=== PATIENT | male | born 1945 | race Caucasian/White ===

== ENCOUNTER 2017-03-25 19:04 | Outpatient (CLI) ==
--- NOTE | 2017-03-26 08:06 | DI ---
EXAM: Two views of the right knee HISTORY: Right knee pain. COMPARISON: None FINDINGS: Medial compartment is mildly narrowed. There is minimal osteophyte formation. There is no cortical irregularity or displaced fracture. There is narrowing and subchondral sclerosis and osteo phyte formation. The patellofemoral compartment. The soft tissues are unremarkable. There is a rou nd lucent lesion in the proximal tibia with no fracture, cortical irregularity or definitive expansil e process. IMPRESSION: 1. No acute fracture or subluxation. 2. 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 3. Lytic well-corticated bone lesion in the proximal right tibia measuring 4.5 x 4.1 cm with no joselyn ical disruption or fracture and sharply marginated borders. Findings are most consistent with a sergio gn bone lesion, but if further evaluation is clinically indicated, MRI may be obtained.
== END 2017-03-25 19:05 | disposition home or self-care (01) ==
LOC: RAD 19:04
PROVIDERS: ATTEND Family Medicine
DX: M25.561 Pain in right knee (principal); M19.90 Unspecified osteoarthritis, unspecified site

== ENCOUNTER 2017-03-26 17:42 | Outpatient (CLI) | END 2017-03-26 17:43 | disposition home or self-care (01) | LOC: LAB 17:42 | PROVIDERS: ATTEND Family Medicine | DX: M25.569 Pain in unspecified knee (principal); M19.90 Unspecified osteoarthritis, unspecified site | CPT/HCPCS: 36415; 86200 ==

== ENCOUNTER 2018-03-28 11:14 | Emergency (ER) | payer OTHER ==
[2018-03-28 11:28] VITALS: BP 102/72; TEMP 99.7; BMI 29.8
--- NOTE | 2018-03-28 11:51 | CT ---
Exam: Head CT. Date: 03/28/2018. Comparison: None. HISTORY: Dizziness. TECHNIQUE: Helical scan of the brain was performed. FINDINGS: The calvarium is intact. There are polyps in the left maxillary sinus. The remaining par anasal sinuses and mastoid air cells are clear. There is mild cerebral and cerebellar volume loss with mild decreased attenuation in the periventricu lar white matter. No abnormal intra or extra-axial fluid, mass or mass effect is present. There is no midline shift or hydrocephalus. No large vessel infarct or hemorrhages identified. Rodriguez-white in terface is maintained. Impression: No acute intracranial findings. Senescent changes with chronic microvascular disease. Left maxillary sinus polyposis.
--- NOTE | 2018-03-28 12:28 | ED.PDOC ---
General ED Provider: Dr. KENNA JOYNER-ER Chief Complaint: Dizziness Stated Complaint: while at [employer] i got dizzy and nauseatd Time Seen by Physician: 11:20 Mode of Arrival: Walk-In Information Source: Patient, Family Exam Limitations: No limitations Primary Care Provider: PAUL GARCIA Nursing and Triage Documentation Reviewed and Agree: Yes Does patient meet sepsis criteria?: No System Inflammatory Response Syndrome: Not Applicable Sepsis Protocol: For patient's 13 years and over: Temp is 96.8 and below OR 101 and greater Pulse >90 BPM Resp >20/minute Acutely Altered Mental Status Are patient's symptoms suggestive of a new infection, such as: -Pneumonia -Skin, Soft Tissue -Endocarditis -UTI -Bone, Joint Infection -Implantable Device -Acute Abdominal Infection -Wound Infection -Meningitis -Blood Stream Catheter Infection -Unknown Neurological Complaint Exam - Syncope/Near Syncope Complaint/Exam Onset/Duration: a few secs Symptoms Are: Resolved Episodes Lasting: Seconds Number of Episodes: 1 Frequency of Episodes: 1 Episodes Witnessed: Yes Loss of Consciousness: No Associated Head Trauma: No Activity at Onset: At rest Aggravating: None Alleviating: Reports: None Associated Signs and Symptoms: Reports: Lightheadedness, Dizziness GI Bleed Risk Factors: Reports: None Dysrhythmia Risk Factors: Reports: >45 years old JVD Present: No Carotid Bruit Present: No Glascow Coma Scale (see protocol): 15 Nystagmus Present: No Gag Reflex Present: Yes Meningeal Signs Positive: No Focal Weakness: Present: None Focal Sensory Loss: Present: None Gait: Normal Romberg Test Positive: No Babinski Sign: Negative Right, Negative Left Heel to Toe Normal: Yes Differential Diagnoses: Dysrhythmia Quality Indicator For Non-Traumatic Chest Pain/Syncope: EKG Performed Review of Systems - Review Of Systems Constitutional: Reports: No symptoms Eyes: Reports: No symptoms Ears, Nose, Mouth, Throat: Reports: No symptoms Respiratory: Reports: No symptoms Cardiac: Reports: No symptoms GI: Reports: No symptoms : Reports: No symptoms Musculoskeletal: Reports: No symptoms Skin: Reports: No symptoms Neurological: Reports: Weakness Endocrine: Reports: No symptoms Hematologic/Lymphatic: Reports: No symptoms All Other Systems: Reviewed and Negative Past Medical History - Past Medical History Previously Healthy: Yes Endocrine: Reports: Unknown Cardiovascular: Reports: Unknown Respiratory: Reports: Unknown Hematological: Reports: Unknown Gastrointestinal: Reports: Unknown Genitourinary: Reports: Unknown Neuro/Psych: Reports: Unknown Musculoskeletal: Reports: Unknown Cancer: Reports: Unknown - Surgical History General Surgical History: Reports: Unknown - Family History Family History: Reports: Unknown - Social History Smoking Status: Never smoker Hx Substance Use: No Alcohol Screening: None - Immunizations Tetanus Shot up to Date: No Physical Exam - Physical Exam Appearance: Well-appearing, No pain distress, Well-nourished Eyes: VALERY, EOMI, Conjunctiva clear ENT: Ears normal, Nose normal, Oropharynx normal Neck: Supple Respiratory: Airway patent Cardiovascular: RRR, Pulses normal, No rub, No murmur GI/: Soft, Nontender, No masses, Bowel sounds normal, No Organomegaly Musculoskeletal: Normal strength, ROM intact, No edema, No calf tenderness Skin: Warm, Dry, Normal color Neurological: Sensation intact, Motor intact, Reflexes intact, Cranial nerves intact, Alert, Oriented Psychiatric: Affect appropriate, Mood appropriate Interpretation - Radiology Interpretation Radiology Interpretation By: Radiologist Radiology Results: Negative Exam Interpreted: CT Scan - EKG Interpretation Time of EKG #1: 12:29 Rate: Normal Rhythm: Sinus Ectopy: None [place]: NL ST Segment: Normal Interpretation: nsr Re-Evaluation - Re-Evaluation Time of Re-Evaluation: 12:29 Status: Improved Vital Signs Stable: Yes Pain Level: 0 Appearance: NAD Lungs: Clear Skin: Warm and Dry Neuro: Alert and Oriented X3 CV: RRR Additional Comments: no chest pain or newman Critical Care Note - Critical Care Note Total Time (mins): 0 Course - Course Hematology/Chemistry: 03/28/18 11:45 03/28/18 11:45 Orders, Labs, Meds: Lab Review 03/28/18 03/28/18 11:45 11:45 WBC 7.73 RBC 4.43 L Hgb 14.2 Hct 41.6 L MCV 93.9 MCH 32.1 H MCHC 34.1 RDW Coeff of Darryn 13.6 Plt Count 144 Immature Gran % (Auto) 0.3 Neut % (Auto) 76.4 Lymph % (Auto) 11.3 [place] % (Auto) 8.4 Eos % (Auto) 3.0 Baso % (Auto) 0.6 Immature Gran # (Auto) 0.0 Neut # (Auto) 5.9 Lymph # (Auto) 0.9 [place] # (Auto) 0.7 Eos # (Auto) 0.2 Baso # (Auto) 0.1 Sodium 135.7 L Potassium 4.62 Chloride 104.7 Carbon Dioxide 24.2 Anion Gap 11.42 BUN 42.6 H Creatinine 2.03 H Estimated GFR (MDRD) 33.00 BUN/Creatinine Ratio 20.98 Glucose 122.2 H Calcium 9.58 Total Bilirubin 0.67 AST 33.2 ALT 21.0 Alkaline Phosphatase 125.5 H Total Creatine Kinase 137.3 CK-MB (CK-2) 1.510 CK-MB (CK-2) % 1.0900 Troponin I < 0.012 Total Protein 7.57 Albumin 3.89 Globulin 3.68 Albumin/Globulin Ratio 1.05 Orders Category Date Time Status EKG-(ED ONLY) Stat CARDIO 03/28/18 11:26 Completed Research Manager [ED SUSTAINABILITY DIRECTOR APPLIED] .ONCE EMERGENCY 03/28/18 11:26 Active CBC W/ AUTO DIFF Stat LAB 03/28/18 11:45 Completed COMPREHENSIVE METABOLIC PANEL Stat LAB 03/28/18 11:45 Completed CREATINE KINASE Stat LAB 03/28/18 11:45 Completed TROPONIN I Stat LAB 03/28/18 11:[address] HEAD W/O CONTRAST Stat RADS 03/28/18 11:26 Completed Vital Signs: Temp Pulse Resp BP Pulse Ox 03/28/18 11:15 99.7 F H 74 18 102/72 95 Departure - Departure Time of Disposition: 12:29 Disposition: HOME SELF-CARE Discharge Problem: Near syncope, CHERELLE (acute kidney injury) Instructions: Near Syncope (ED) Condition: Good Pt referred to PMD for follow-up: Yes IPMP verified?: No Additional Instructions: rest today---plenty of fluids---8 glasses of water today--repeat bmp tomorrow at dr avilez office ---schedule stress test and holter monitor through the office tomorrow Allergies/Adverse Reactions: Allergies atorvastatin [From Lipitor] Adverse Reaction (Verified 03/28/18 11:28) ciprofloxacin [From Cipro] Adverse Reaction (Verified 03/28/18 11:28) Penicillins Adverse Reaction (Verified 03/28/18 11:28) Home Medications: Ambulatory Orders Allopurinol 300 mg PO DAILY 03/28/18 Colchicine 0.6 mg PO PRN PRN 03/28/18 Finasteride [Proscar] 5 mg PO DAILY 03/28/18 Fluticasone/Salmeterol 250/50 [Advair 250-50 Diskus] 1 puff IH BID 03/28/18 Irbesartan/Hydrochlorothiazide [Irbesartan-Hctz 300-12.5 mg Tb] 1 each PO DAILY 03/28/18 Meloxicam 15 mg PO DAILY 03/28/18 Pantoprazole Sodium [Protonix] 40 mg PO DAILY 03/28/18 Rosuvastatin Calcium [Crestor] 10 mg PO DAILY 03/28/18 Transfer Form Completed: No Disposition Discussed With: Patient, Family
== END 2018-03-28 12:40 | disposition home or self-care (01) ==
LOC: ED 11:14 → MERGE 11:14 → ED 12:40
DX: R55 Syncope and collapse (principal); N17.9 Acute kidney failure, unspecified; Z79.899 Other long term (current) drug therapy
CPT/HCPCS: 36415; 80053; 82550; 82553; 84484; 85025; 93005; 93010; 99283

== ENCOUNTER 2018-04-09 14:31 | Emergency (ER) ==
[2018-04-09 14:35] VITALS: BP 137/78; TEMP 98.8; BMI 30.6
--- NOTE | 2018-04-09 15:21 | ED.PDOC ---
General ED Provider: Dr. AUGUSTA PEARSON Chief Complaint: Earache Stated Complaint: LEFT EAR PAIN X 3 DAYS NO D/C Time Seen by Physician: 15:00 (SEEN WITH STEPHANIE AT ALL TIMES ) Mode of Arrival: Walk-In Information Source: Patient Exam Limitations: No limitations Primary Care Provider: PAUL GARCIA Nursing and Triage Documentation Reviewed and Agree: Yes Does patient meet sepsis criteria?: Yes If yes, has appropriate treatment been initiated?: No System Inflammatory Response Syndrome: Not Applicable Sepsis Protocol: For patient's 13 years and over: Temp is 96.8 and below OR 101 and greater Pulse >90 BPM Resp >20/minute Acutely Altered Mental Status Are patient's symptoms suggestive of a new infection, such as: -Pneumonia -Skin, Soft Tissue -Endocarditis -UTI -Bone, Joint Infection -Implantable Device -Acute Abdominal Infection -Wound Infection -Meningitis -Blood Stream Catheter Infection -Unknown EENT Complaint Exam - Ear Complaint/Exam Onset/Duration: 2 DAYS Symptoms Are: Still present Timing: Constant Initial Severity: Moderate Current Severity: Moderate Character: Reports: Dull pain Aggravating: Reports: None Alleviating: Reports: None Associated Signs and Symptoms: Denies: Ear trauma, Ear swelling, Discharge, Fever, Hearing loss, Bleeding, Sore throat, Headache, URI symptoms, Foreign body sensation, Rash, Pain to external ear, Pain to external face Ear 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) Vesicles to External Pinna: No Vesicles to Tragus: No TMJ Tenderness: None Mastoid Tenderness: None Tragal Tenderness: None External Canal: Normal Tympanic Membrane: Erythema Differential Diagnoses: Otitis Media Review of Systems - Review Of Systems Constitutional: Reports: No symptoms Eyes: Reports: No symptoms Ears, Nose, Mouth, Throat: Reports: Ear pain (LEFT) Respiratory: Reports: No symptoms Cardiac: Reports: No symptoms GI: Reports: No symptoms : Reports: No symptoms Musculoskeletal: Reports: No symptoms Skin: Reports: No symptoms Neurological: Reports: No symptoms Endocrine: Reports: No symptoms Hematologic/Lymphatic: Reports: No symptoms All Other Systems: Reviewed and Negative Past Medical History - Past Medical History Previously Healthy: Yes Endocrine: Reports: Unknown Cardiovascular: Reports: Unknown Respiratory: Reports: Unknown Hematological: Reports: Unknown Gastrointestinal: Reports: Unknown Genitourinary: Reports: Unknown Neuro/Psych: Reports: Unknown Musculoskeletal: Reports: Unknown Cancer: Reports: Unknown - Surgical History General Surgical History: Reports: Unknown - Family History Family History: Reports: Unknown - Social History Smoking Status: Never smoker Hx Substance Use: No Alcohol Screening: None - Immunizations Tetanus Shot up to Date: No Physical Exam - Physical Exam Appearance: Well-appearing, No pain distress, Well-nourished Eyes: VALERY, EOMI, Conjunctiva clear ENT: Erythema (LEFT TM NO F/B ) Respiratory: Airway patent, Breath sounds clear, Breath sounds equal, Respirations nonlabored Cardiovascular: RRR, Pulses normal, No rub, No murmur GI/: Soft, Nontender, No masses, Bowel sounds normal, No Organomegaly Musculoskeletal: Normal strength, ROM intact, No edema, No calf tenderness Skin: Warm, Dry, Normal color Neurological: Sensation intact, Motor intact, Reflexes intact, Cranial nerves intact, Alert, Oriented Psychiatric: Affect appropriate, Mood appropriate Critical Care Note - Critical Care Note Total Time (mins): 0 Course - Course Vital Signs: Temp Pulse Resp BP Pulse Ox 04/09/18 14:31 98.8 F 87 16 137/78 97 Departure - Departure Time of Disposition: 15:22 Disposition: HOME SELF-CARE Discharge Problem: Ear problem, Ear pain, left Otitis Qualifiers: Laterality: left Qualified Code(s): H66.92 - Otitis media, unspecified, left ear Instructions: Ear Infection (ED) Condition: Good Pt referred to PMD for follow-up: Yes IPMP verified?: No Allergies/Adverse Reactions: Allergies atorvastatin [From Lipitor] Adverse Reaction (Verified 04/09/18 14:35) ciprofloxacin [From Cipro] Adverse Reaction (Verified 04/09/18 14:35) Penicillins Adverse Reaction (Verified 04/09/18 14:35) Home Medications: Ambulatory Orders Allopurinol 300 mg PO DAILY 03/28/18 Colchicine 0.6 mg PO PRN PRN 03/28/18 Finasteride [Proscar] 5 mg PO DAILY 03/28/18 Fluticasone/Salmeterol 250/50 [Advair 250-50 Diskus] 1 puff IH BID 03/28/18 Irbesartan/Hydrochlorothiazide [Irbesartan-Hctz 300-12.5 mg Tb] 1 each PO DAILY 03/28/18 Meloxicam 15 mg PO DAILY 03/28/18 Pantoprazole Sodium [Protonix] 40 mg PO DAILY 03/28/18 Rosuvastatin Calcium [Crestor] 10 mg PO DAILY 03/28/18
== END 2018-04-09 15:36 | disposition home or self-care (01) ==
LOC: ED 14:31
DX: H66.92 Otitis media, unspecified, left ear (principal)
CPT/HCPCS: 99282